=== PATIENT | male | born 2005 | race Two or more races ===

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

== ENCOUNTER 2023-03-12 19:25 | Emergency (ER) | payer OTHER ==
[~2023-03-12] VITALS: Ht 170.2 cm; Wt 59.0 kg
[~2023-03-12 19:25] MED LIST: IBUP-1953 PO
[2023-03-12 20:56] VITALS: BP 118/75; TEMP 99.7
[2023-03-12] MEDS ORDERED: SENN-301 PO (21:57)
[2023-03-12] MEDS ORDERED: CARB15DR12 EACH EAR (22:12)
[2023-03-12 22:21] VITALS: O2SAT 98
== END 2023-03-12 22:21 | disposition home or self-care (01) ==
LOC: ER 19:28
DX: K59.00 Constipation, unspecified (principal); H61.23 Impacted cerumen, bilateral; Z79.899 Other long term (current) drug therapy